=== PATIENT | female | born 1965 | race Caucasian/White ===

== ENCOUNTER 2021-08-07 08:01 | Day surgery (SDC) | payer OTHER ==
[2021-08-07] MEDS ORDERED: LACTATED RINGERS 1,000 ML IV ONE (09:22)
[2021-08-07 09:23] VITALS: RESP 16; TEMP 98.1
[2021-08-07] MEDS ORDERED: LIDOCAINE 1% (10MG/ML) FOR IV START INTRADERMA ONE (09:23)
[2021-08-07] MEDS ORDERED: LIDOCAINE 1% INJ 10MG/ML (20 ML MDV) ONE (09:29)
[2021-08-07] MEDS ORDERED: PROPOFOL 10 MG/ML 20 ML VIAL IV ONE (09:29)
--- NOTE | 2021-08-07 09:55 | P.PCN ---
Date of Procedure: 08/07/21 Procedure(s) Performed: BRIEF HISTORY: Patient is a 56-year-old pleasant white female scheduled for an elective colonoscopy as a part of screening for colorectal neoplasia. PROCEDURE PERFORMED: Colonoscopy. PREOPERATIVE DIAGNOSIS: Screening for colon cancer. IV sedation per Anesthesia. PROCEDURE: After informed consent was obtained, the patient, was brought into the endoscopy unit. IV sedation was administered by Anesthesia under continuous monitoring. Digital rectal examination was normal. Initially the Olympus CF-160 flexible video colonoscope was then inserted in the rectum, gradually advanced into the cecum without any difficulty. Careful examination was performed as the scope was gradually being withdrawn. Ileocecal valve and the appendiceal orifice were visualized and appeared normal. Prep was excellent. Mucosa of the cecum, ascending colon, transverse colon, descending colon, sigmoid colon, and rectum appeared normal. Retroflexion was performed in the rectum and no lesions were seen. The patient tolerated the procedure well. IMPRESSION: Normal-appearing colon from rectum to cecum with no evidence of colorectal neoplasia . RECOMMENDATIONS: Findings of this examination were discussed with the patient as well as her family. She was advised to have a repeat screening colonoscopy in 10 years..
[2021-08-07 10:17] VITALS: BP 120/68; PULSE 50
[2021-08-07] MEDS ORDERED: LIDOCAINE 1% (10MG/ML) FOR IV START INTRADERMA PRN (10:18)
[2021-08-07] MEDS ORDERED: LACTATED RINGERS 1,000 ML IV SCH (10:18)
== END 2021-08-07 10:33 | disposition home or self-care (01) ==
LOC: ORWHC2ENDO 08:01
PROVIDERS: ATTEND Internal Medicine Gastroenterology
DX: Z12.11 Encounter for screening for malignant neoplasm of colon (principal); E07.9 Disorder of thyroid, unspecified; K21.9 Gastro-esophageal reflux disease without esophagitis; Z79.899 Other long term (current) drug therapy; Z79.890 Hormone replacement therapy
CPT/HCPCS: J2001; J2704; G0121

== ENCOUNTER → 2022-11-19 | Outpatient (CLI) | payer OTHER ==
--- NOTE | 2022-11-19 07:35 | US ---
EXAMINATION TYPE: US thyroid st tissue head/neck DATE OF EXAM: 11/19/2022 COMPARISON: NONE CLINICAL INDICATION: Female, 57 years old with history of E03.8 OTHER SPECIFIED HYPOTHYROIDISM; Known hypothyroidism, pt on meds x many years/ incidental finding of thyroid nodule on outside CT GLAND SIZE: Right Lobe: 4.4 x 1.3 x 1.2 cm Overall Parenchyma: homogenous Left Lobe: 3.4 x 0.8 x 0.8 cm Overall Parenchyma: homogeneous Isthmus Thickness: 0.1 cm NODULES RIGHT: # of nodules measured on right: 1 1. 1.1 X 0.8 x 1.0 cm, mid, cystic or almost completely cystic, anechoic nodule, which is wider irasema n tall, with smooth margins, without echogenic foci. Prior size: No prior LEFT: # of nodules measured on left: 0 ISTHMUS: # of nodules measured in the isthmus: 0 Bilateral neck scanned, no evidence of lymphadenopathy. Cystic nodule right lobe. IMPRESSION: 1. Benign cyst right thyroid lobe 2017 ACR TI-RADS LEVEL: TR-RADS 1 - BENIGN: No FNA *Highest TI-RADS level nodule reported
== END | disposition home or self-care (01) ==
LOC: RADUSWWP 07:01
PROVIDERS: ATTEND Internal Medicine Endocrinology, Diabetes & Metabolism
DX: E04.1 Nontoxic single thyroid nodule (principal); E03.8 Other specified hypothyroidism; R22.0 Localized swelling, mass and lump, head
CPT/HCPCS: 76536

== ENCOUNTER → 2022-11-24 | Outpatient (CLI) | payer OTHER ==
[2022-11-24 20:12] LABS: HCT 39.1 % (37.2-46.3); MCH 30.3 pg (27.0-32.0); MCHC 33.2 d/dL (32.0-37.0); MCV 91.1 FL (80.0-97.0); Mean Platelet Volume 10.4 FL (9.5-12.2); NRBC Per 100 WBC 0 X 10*3/uL (0.00-0.01); Platelet Count 215 X 10*3/uL (140-440); RBC 4.29 X 10*6/uL (4.10-5.20); RDW 12.2 % (11.5-14.5); WBC 5.64 X 10*3/uL (4.50-10.00)
[2022-11-24 21:24] LABS: BUN/Creat Ratio 35.57 Ratio (12.00-20.00); Blood Urea Nitrogen 24.9 mg/dL (9.0-27.0); Glucose 103 mg/dL (70-110)
[2022-11-24 21:25] LABS: ALT 24 U/L (8-44); AST 28 U/L (13-35); Albumin 4.2 d/dL (3.8-4.9); Alkaline Phosphatase 68 U/L (41-126); Calcium 9.4 mg/dL (8.7-10.3); Carbon Dioxide 22.9 mmol/L (21.6-31.8); Chloride 107 mmol/L (96-109); Potassium 4.1 mmol/L (3.5-5.5); Sodium 140 mmol/L (135-145); T4, Free (Free Thyroxine) 0.62 ng/dL (0.80-1.80); Total Bilirubin 0.3 mg/dL (0.3-1.2); Total Protein 6.2 d/dL (6.2-8.2)
== END | disposition home or self-care (01) ==
LOC: LABWHC1 10:43
PROVIDERS: ATTEND Internal Medicine Endocrinology, Diabetes & Metabolism
DX: E04.1 Nontoxic single thyroid nodule (principal); E03.8 Other specified hypothyroidism
CPT/HCPCS: 36415; 80053; 82024; 82533; 82607; 84146; 84439; 84443; 85027

== ENCOUNTER 2022-12-03 11:58 | Emergency (ER) | payer OTHER ==
[2022-12-03] MEDS ORDERED: KETOROLAC 15 MG/ML 1 ML VIAL IVP STA (12:21)
[2022-12-03] MEDS ORDERED: HYDROmorphone 0.5 MG/0.5 ML SYRINGE IVP STA ×2 (12:22→13:49)
[2022-12-03 12:24] VITALS: TEMP 97.9
--- NOTE | 2022-12-03 12:25 | ED ---
General Adult HPI - General Chief complaint: Fall Stated complaint: fall Time Seen by Provider: 12/03/22 12:05 Source: patient, EMS, RN notes reviewed, old records reviewed Mode of arrival: EMS Limitations: no limitations - History of Present Illness Initial comments: This is a 57 old female who presents emergency Department complaining of right knee pain and left ankle pain and some lower back pain. Patient states she was in the attic and fell between 2 [place] on the floor below her. Patient states it was about 10 feet high. Patient states she landed on her buttocks. Patient denies hitting her head and neck. Patient has no neck pain patient has no numbness weakness. Patient has no headache patient has no scalp tenderness. Patient denies chest pain or upper back pain. Patient denies any abdominal pain. Patient's main pain is lower back right knee and left ankle. - Related Data Home Medications Medication Instructions Recorded Confirmed Liothyronine Sodium 25 mcg PO DAILY 08/07/21 12/03/22 FLUoxetine HCL [PROzac] 40 mg PO DAILY 12/03/22 12/03/22 Levothyroxine Sodium [Tirosint] 88 mcg PO DAILY 12/03/22 12/03/22 Multivitamins, Thera [Multivitamin 1 tab PO DAILY 12/03/22 12/03/22 (formulary)] Neuriva Plus 1 tab PO DAILY 12/03/22 12/03/22 Rizatriptan Benzoate [Rizatriptan] 5 mg PO DAILY PRN 12/03/22 12/03/22 Allergies Allergy/AdvReac Type Severity Reaction Status Date / Time latex Allergy Itching Verified 12/03/22 13:18 Review of Systems ROS Statement: Those systems with pertinent positive or pertinent negative responses have been documented in the HPI. ROS Other: All systems not noted in ROS Statement are negative. Past Medical History Past Medical History: Sleep Apnea/CPAP/BIPAP, Thyroid Disorder Additional Past Medical History / Comment(s): migraine,chronic rhinitis, History of Any Multi-Drug Resistant Organisms: None Reported Past Surgical History: Orthopedic Surgery Additional Past Surgical History / Comment(s): bilat saphenous veins removed, breast implants, left hand break repair, orthrodontic surgery Past Psychological History: Depression Smoking Status: Former smoker Past Alcohol Use History: Occasional Past Drug Use History: None Reported General Exam - General Exam Comments Initial Comments: GENERAL: Patient is well-developed and well-nourished. Patient is nontoxic and well- hydrated and is in moderate distress. ENT: Neck is soft and supple. No significant lymphadenopathy is noted. Oropharynx is clear. Moist mucous membranes. Neck has full range of motion without eliciting any pain. EYES: The sclera were anicteric and conjunctiva were pink and moist. Extraocular movements were intact and pupils were equal round and reactive to light. Eyelids were unremarkable. PULMONARY: Unlabored respirations. Good breath sounds bilaterally. No audible rales rhonchi or wheezing was noted. CARDIOVASCULAR: There is a regular rate and rhythm without any murmurs gallops or rubs. ABDOMEN: Soft and nontender with normal bowel sounds. SKIN: Skin is clear with no lesions or rashes and otherwise unremarkable. NEUROLOGIC: Patient is alert and oriented x3. Cranial nerves II through XII are grossly intact. Motor and sensory are also intact. Normal speech, volume and content. Symmetrical smile. MUSCULOSKELETAL: Patient has quite a bit of swelling to the proximal right fibula. Patient has lateral malleolus swelling and tenderness on the left. Patient has lumbosacral spine tenderness across the lower back. No lower extremity swelling or edema. No calf tenderness. LYMPHATICS: No significant lymphadenopathy is noted PSYCHIATRIC: Normal psychiatric evaluation. Limitations: no limitations Course Vital Signs 12/03/22 12/03/22 12:01 15:05 Temperature 97.9 F Pulse Rate 64 56 L Respiratory 22 16 Rate Blood Pressure 119/75 113/70 O2 Sat by Pulse 100 100 Oximetry Procedures - Orthopedic Splinting/Casting Injury #1 Side: left Lower Extremity Injury Location: long leg Lower Extremity Immobilizer: stirrup splint Medical Decision Making - Medical Decision Making Was pt. sent in by a medical professional or institution (, PA, NUCLEAR WEAPONS SPECIALIST, urgent care, hospital, or penitentiary...) When possible be specific @ -No Did you speak to anyone other than the patient for history (EMS, parent, family, police, friend...)? What history was obtained from this source @ -No Did you review nursing and triage notes (agree or disagree)? Why? @ -I reviewed and agree with nursing and triage notes Were old charts reviewed (outside hosp., previous admission, EMS record, old EKG, old radiological studies, urgent care reports/EKG's, penitentiary records)? Report findings @ -No old charts were reviewed Differential Diagnosis (chest pain, altered mental status, abdominal pain women, abdominal pain men, vaginal bleeding, weakness, fever, dyspnea, syncope, headache, dizziness, GI bleed, back pain, seizure, CVA, palpatations, mental health, musculoskeletal)? @ -Differential Musculoskeletal Muscular strain, contusion, ligament sprain, fracture, arthritis, septic arthritis, bursitis, cellulitis, muscle spasm, nerve compression, DVT, arterial occlusion, herpes zoster, electrolyte abnormality, tumor.... This is not meant to be in all inclusive list EKG interpreted by me (3pts min.). @ -As above X-rays interpreted by me (1pt min.). @ -Chest x-ray showed no acute abnormality. X-ray lumbosacral spine showed a L2 compression fracture. X-ray of the right tibia and fibula shows a comminuted tibial plateau fracture with minimal displacement. X-ray of the left ankle shows a distal comminuted intra-articular tibial fracture. C-spine x-ray shows no acute abnormality CT interpreted by me (1pt min.). @ -None done U/S interpreted by me (1pt. min.). @ -None done What testing was considered but not performed or refused? (CT, X-rays, U/S, labs)? Why? @ -None What meds were considered but not given or refused? Why? @ -None Did you discuss the management of the patient with other professionals (professionals i.e. , PA, NUCLEAR WEAPONS SPECIALIST, lab, RT, psych nurse, hospital social worker, second floor operator, teacher, communications officer, shelter case manager)? Give summary @ -I spoke with Dr. Alvarado's physician server service assistant and they recommended the patient be transferred to a trauma surgeon. I spoke with [facility] accepted the transfer of this patient. Was smoking cessation discussed for >3mins.? @ -No Was critical care preformed (if so, how long)? @ -35 minutes Were there social determinants of health that impacted care today? How? (Homelessness, low income, unemployed, alcoholism, drug addiction, transportation, low edu. Level, literacy, decrease access to med. care, [place] [facility], rehab)? @ -No Was there de-escalation of care discussed even if they declined (Discuss DNR or withdrawal of care, Hospice)? DNR status @ -No What co-morbidities impacted this encounter? (DM, HTN, Smoking, COPD, CAD, Cancer, CVA, ARF, Chemo, Hep., AIDS, mental health diagnosis, sleep apnea, morbid obesity)? @ -None Was patient admitted / discharged? Hospital course, mention meds given and route, prescriptions, significant lab abnormalities, going to OR and other pertinent info. @ -She was given appropriate pain medication and then sent over for x-rays. Patient had a proximal tibial plateau fracture on the right and a left comminuted distal tibial fracture. Patient also is an L2 fracture. Patient had a splint placed on the right ankle and a knee immobilizer on the left knee. Patient will be transferred to [facility] after I spoke with the ER there Undiagnosed new problem with uncertain prognosis? @ -No Drug Therapy requiring intensive monitoring for toxicity (Heparin, Nitro, Insulin, Cardizem)? @ -No Were any procedures done? @ -No Diagnosis/symptom? @ -Fall Acute, or Chronic, or Acute on Chronic? @ -Acute Uncomplicated (without systemic symptoms) or Complicated (systemic symptoms)? @ -Complicated Side effects of treatment? @ -No Exacerbation, Progression, or Severe Exacerbation? @ -No Poses a threat to life or bodily function? How? (Chest pain, [place], OR, pneumonia, PE, COPD, DKA, ARF, appy, cholecystitis, CVA, Diverticulitis, Homicidal, Suicidal, threat to staff... and all critical care pts) @ -No Diagnosis/symptom? @ -Right tibial plateau fracture Acute, or Chronic, or Acute on Chronic? @ -Acute Uncomplicated (without systemic symptoms) or Complicated (systemic symptoms)? @ -Complicated Side effects of treatment? @ -none Exacerbation, Progression, or Severe Exacerbation] @ -no Poses a threat to life or bodily function? @ -no Diagnosis/symptom? @ -Left distal comminuted tibia fracture Acute, or Chronic, or Acute on Chronic? @ -Acute Uncomplicated (without systemic symptoms) or Complicated (systemic symptoms)? @ -Complicated Side effects of treatment? @ -none Exacerbation, Progression, or Severe Exacerbation] @ -no Poses a threat to life or bodily function? @ -no Diagnosis/symptom? @ -L2 compression fracture Acute, or Chronic, or Acute on Chronic? @ -Acute Uncomplicated (without systemic symptoms) or Complicated (systemic symptoms)? @ -Complicated Side effects of treatment? @ -none Exacerbation, Progression, or Severe Exacerbation] @ -no Poses a threat to life or bodily function? @ -no Critical Care Time Critical Care Time: Yes Total Critical Care Time: 35 Disposition Clinical Impression: Fall, Lumbar compression fracture, Tibial plateau fracture, Fracture of distal end of tibia Disposition: OTHER INSTITUTION NOT DEFINED Referrals: [facility],Clinic [Primary Care Provider] - 1-2 days - Out of Hospital Transfer - Req. Specs Out of Hospital Transfer - Requested Specifics: Other Emergency Center ([facility])
--- NOTE | 2022-12-03 13:24 | XR ---
EXAMINATION TYPE: XR ankle complete LT DATE OF EXAM: 12/03/2022 COMPARISON: NONE HISTORY: Pain FINDINGS: Three views of the ankle demonstrate comminuted displaced fracture of the distal tibia. Large plantar calcaneal spur. Fibula grossly intact. IMPRESSION: 1. Comminuted displaced intra-articular fracture distal tibia.
--- NOTE | 2022-12-03 13:24 | XR ---
EXAMINATION TYPE: XR chest 2V DATE OF EXAM: 12/03/2022 1:19 PM COMPARISON: None TECHNIQUE: XR chest 2V Frontal and lateral views of the chest. CLINICAL INDICATION:Female, 57 years old with history of Difficulty breathing ; FINDINGS: Lungs/Pleura: There is no evidence of pleural effusion, focal consolidation, or pneumothorax. Pulmonary vascularity: Unremarkable. Heart/mediastinum: Cardiomediastinal silhouette is unremarkable. Musculoskeletal: No acute osseous pathology. Mild degenerative disc disease of the thoracic spine. IMPRESSION: No acute cardiopulmonary disease/process.
--- NOTE | 2022-12-03 13:25 | XR ---
EXAMINATION TYPE: XR tibia fibula RT DATE OF EXAM: 12/03/2022 COMPARISON: NONE HISTORY: Pain TECHNIQUE: Two views are submitted. FINDINGS: There appears to be an intra-articular tibial plateau fracture laterally with displacement. There is a fracture of the of the proximal diaphysis of the tibia with displacement with oblique orientation. Soft tissue edema noted. Lipohemarthrosis noted in the suprapatellar bursa. Plantar calcaneal spur. IMPRESSION: 1. Comminuted intra-articular tibial plateau fracture extending from lateral tibial plateau toward th e intercondylar notch. 2. Oblique proximal diaphyseal tibial mildly displaced fracture.
--- NOTE | 2022-12-03 13:25 | XR ---
EXAMINATION TYPE: XR pelvis AP view DATE OF EXAM: 12/03/2022 1:19 PM INDICATION: Patient age:Female; 57 years old; Reason for study: Trauma; [facility]. COMPARISON: None TECHNIQUE: The pelvis was examined in a single projection. FINDINGS: There is no evidence of fracture or dislocation. There is no soft tissue abnormality. Mult iple pelvic phleboliths. IMPRESSION: No acute osseous pathology.
--- NOTE | 2022-12-03 13:26 | XR ---
EXAM TYPE: LUMBAR SPINE X RAY SERIES COMPARISON: NONE HISTORY: Pain TECHNIQUE: 4 views are submitted. FINDINGS: Alignment is anatomic. The pedicles are intact. The transverse processes are intact. There is mult ilevel hypertrophic and degenerative disc disease. There is a mild superior endplate compression frac ture. Multilevel facet arthropathy. SI joints symmetric. Sacral foramina symmetric. IMPRESSION: 1. Findings are suggestive of a mildly depressed superior endplate compression fracture L2 with appro ximately 10-15% loss of vertebral body height.
--- NOTE | 2022-12-03 13:29 | XR ---
EXAMINATION TYPE: XR cervical spine comp DATE OF EXAM: 12/03/2022 COMPARISON: NONE HISTORY: Pain TECHNIQUE: Four views are submitted. FINDINGS: The odontoid is intact. There are no compression deformities. The prevertebral soft tissue structur es are within normal limits. There is severe degenerative disc disease C4-5 and C5-C6 with retrolist hesis of C4 relative to C5. IMPRESSION: 1. Multilevel severe degenerative disc disease with retrolisthesis of C4 relative to C5.
[2022-12-03 15:08] VITALS: BP 113/70; PULSE 56; RESP 16
--- NOTE | 2022-12-03 15:16 | CT ---
EXAMINATION TYPE: CT thor lumbar spine wo con CT DLP: 1006.4 mGycm, Automated exposure control for dose reduction was used. DATE OF EXAM: 12/03/2022 3:03 PM COMPARISON: Lumbar spine radiographs 12/03/2022 CLINICAL INDICATION:Female, 57 years old with history of Trauma; [facility], fall TECHNIQUE: Axial images of the thoracolumbar spine were obtained without contrast. Coronal and sagitt al reformats were performed. FINDINGS: Acute anterior wedge compression deformity with fractures involving the superior and anter ior endplate of the L2 vertebral body. There is approximately 10% height loss and no retropulsion. Ac [place] nondisplaced left L2 transverse process fracture. Mild multilevel degenerative disc disease with disc space narrowing, endplate process, Schmorl's nodes, and anterior osteophytosis. L2-L3 broad-base d disc bulge with at least mild spinal canal stenosis. L3-L4 broad-based disc bulge with a least mild spinal canal stenosis. L4-L5 broad-based disc bulge and ligamentum flavum buckling with at least mil d spinal canal stenosis. No significant neural foraminal stenosis identified. IMPRESSION: 1. Acute anterior compression fracture of the L2 vertebral body with approximately 10% height loss a nd no retropulsion. Additional acute nondisplaced fracture of the left L2 transverse process. 2. Mild multilevel degenerative disc disease of the lumbar spine.
[2022-12-03 15:19] LABS: Basophils % (A) 0 %; Eosinophils % (A) 0 %; HGB 12.5 gm/dL (11.4-16.0); Lymphocytes # (A) 0.6 k/uL (1.0-4.8); Lymphocytes % (A) 5 %; MCH 30.3 pg (25.0-35.0); MCV 91.9 fL (80.0-100.0); Mean Platelet Volume 7.5; Monocytes # (A) 0.5 k/uL (0-1.0); Monocytes % (A) 4 %; Neutrophils # (A) 12.4 k/uL (1.3-7.7); Neutrophils % (A) 91 %; Platelet Count 178 k/uL (150-450); RBC 4.14 m/uL (3.80-5.40); RDW 12.7 % (11.5-15.5); WBC 13.7 k/uL (3.8-10.6)
[2022-12-03 15:30] LABS: ALT 36 U/L (4-34); AST 49 U/L (14-36); African American GFR (CKD) >90 (>60 ml/min/1.73 sqM); Alkaline Phosphatase 72 U/L (38-126); Anion Gap 8 mmol/L; Blood Urea Nitrogen 22 mg/dL (7-17); Calcium 8.7 mg/dL (8.4-10.2); Carbon Dioxide 26 mmol/L (22-30); Chloride 104 mmol/L (98-107); Glucose 121 mg/dL (74-99); Non-African American GFR(CKD) >90 (>60 ml/min/1.73 sqM); Potassium 3.7 mmol/L (3.5-5.1); Sodium 138 mmol/L (137-145); Total Bilirubin 0.4 mg/dL (0.2-1.3); Total Protein 6.5 g/dL (6.3-8.2)
== END 2022-12-03 15:41 | disposition other institution (70) ==
LOC: EC 11:58
DX: S32.020A Wedge compression fracture of second lumbar vertebra, initial encounter for closed fracture (principal); S82.142A Displaced bicondylar fracture of left tibia, initial encounter for closed fracture; E07.9 Disorder of thyroid, unspecified; F32.A Depression, unspecified; Z87.891 Personal history of nicotine dependence; Z91.040 Latex allergy status; Z79.890 Hormone replacement therapy; Z79.899 Other long term (current) drug therapy; W17.89XA Other fall from one level to another, initial encounter
CPT/HCPCS: 36415; 80053; 85025; 72050; 72100; 72170; 73590; 73610; 71046; 72128; 72131; 99291; 96374; 96375; 96376; 29505; L1830; J1885; J1170

== ENCOUNTER → 2023-07-14 | Outpatient (CLI) | payer OTHER ==
[2023-07-14 15:11] VITALS: BP 100/73; PULSE 63; RESP 16; TEMP 97.8
--- NOTE | 2023-07-14 16:45 | P.HPOB ---
History of Present Illness H&P Date: 07/14/23 Chief Complaint: The patient is here for her routine gynecologic exam and ma mmogram. This is a 58-year-old G0 with an LMP of 2012. The patient is here to establish with this office. It has been about 5 years since her last pelvic exam. The patient states she was started on Prempro around 2012 because of irritability and hot flashes. She states she has done well with the Prempro 0.625/2.5 daily. She is without gynecologic complaints and denies any postmenopausal bleeding. Review of Systems The patient has gained about 20 pounds over the past year or 2 and attributes this to a left ankle and right knee injury which has decreased her activity. She denies respiratory, cardiac, or GI problems. Past Medical History Past Medical History: GERD/Reflux, Sleep Apnea/CPAP/BIPAP, Thyroid Disorder Additional Past Medical History / Comment(s): migraine,chronic rhinitis, overactive bladder, glaucoma, scalp folliculitis, and hypothyroidism. PAST DENTAL HYGIENE ADMINISTRATIVE ASSISTANT HISTORY: She has no history of STDs. History of Any Multi-Drug Resistant Organisms: None Reported Past Surgical History: Orthopedic Surgery Additional Past Surgical History / Comment(s): bilat saphenous veins removed, bilateral silicone breast implants, left hand break repair, orthrodontic surgery, left ankle and right knee surgeries. Colonoscopy 2020(next after 10yr). Past Psychological History: Depression Smoking Status: Never smoker Past Alcohol Use History: None Reported Past Drug Use History: None Reported Additional History: She is single and is not currently seeing anybody at this time. 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 - Past Family History Mother Family Medical History: Pulmonary Embolus Additional Family Medical History / Comment(s): from pulmonary embolus at age 92. Maternal grandmother had ovarian cancer and maternal aunt had breast cancer. Sister(s) Family Medical History: Cancer Additional Family Medical History / Comment(s): Uterine cancer. Medications and Allergies Home Medications Medication Instructions Recorded Confirmed Type Liothyronine Sodium 25 mcg PO DAILY 08/07/21 07/14/23 History FLUoxetine HCL [PROzac] 40 mg PO DAILY 12/03/22 07/14/23 History Levothyroxine Sodium [Tirosint] 88 mcg PO DAILY 12/03/22 07/14/23 History Multivitamins, Thera [Multivitamin 1 tab PO DAILY 12/03/22 07/14/23 History (formulary)] Rizatriptan Benzoate [Rizatriptan] 5 mg PO DAILY PRN 12/03/22 07/14/23 History Amitriptyline HCl 50 mg PO DAILY 07/14/23 07/14/23 History Benzoyl Peroxide [Benzoyl Peroxide 1 applic TOPICAL DIRECTED 07/14/23 07/14/23 History 5%] Clindamycin Phosphate [Clindagel 1 applic TOPICAL DIRECTED 07/14/23 07/14/23 History 1%] Clobetasol Propionate [Temovate 1 applic VAGINAL DIRECTED 07/14/23 07/14/23 History 0.05% Cream] Ferrous Sulfate [Iron (65 MG 1 tab PO DAILY 07/14/23 07/14/23 History Elemental)] Latanoprost [Latanoprost 0.005%] 0.005 % PO DAILY 07/14/23 07/14/23 History Mirabegron [Myrbetriq] 50 mg PO DAILY 07/14/23 07/14/23 History Omeprazole 20 mg PO DAILY 07/14/23 07/14/23 History Allergies Allergy/AdvReac Type Severity Reaction Status Date / Time latex Allergy Itching Verified 07/14/23 14:57 Exam Vital Signs Temp Pulse Resp BP Pulse Ox 07/14/23 15:04 97.8 F 63 16 100/73 98 Intake and Output 07/14/23 07/14/23 07/14/23 06:59 14:59 22:59 Other: Weight 76.204 kg Height 5 feet 8 inches, weight 168 pounds, BMI 25.5. This is a well-developed well-nourished white female who is alert and oriented times 3 in no acute distress. HEENT: Within normal limits. NECK: Supple without mass or thyromegaly. CHEST AND LUNGS: Clear to auscultation. HEART: Regular rate and rhythm. BREASTS: Are without mass or discharge. AXILLARY EXAM: Negative for adenopathy. BACK: Negative for CVA tenderness. ABDOMEN: Soft, nontender, without palpable masses. PELVIC EXAM: Normal external genitalia with mild atrophy. Cervix and vagina appear normal with mild to moderate atrophy. The cervix appears nulliparous with stenosis secondary to atrophy. There is no unusual discharge. There is no evidence of prolapse. The uterus is midposition, nongravid size and nontender. There are no palpable adnexal masses or tenderness. RECTAL EXAM: Rectovaginal exam is negative for mass or tenderness and is negative for occult blood. EXTREMITIES: Nontender. IMPRESSION: 1. 58-year-old menopausal female with normal gynecologic exam. 2. Doing well on Prempro 0.625/2.5 which she has been on for 10 years. PLAN: 1. Pap smear cotest was performed. 2. Self breast awareness was discussed with the patient. We have also discussed symptoms associated with inflammatory breast cancer. 3. Screening mammogram will be done today. 4. Osteoporosis prevention was discussed. I have stressed the importance of adequate calcium, vitamin D and regular exercise. Recommended amounts of calcium and vitamin D were also discussed. 5. We have had a long discussion regarding HRT. We have discussed pros and cons. We have discussed possible risks including slight increased risk for breast cancer, heart attack, stroke, and blood clots. We will try to find the lowest effective dose by weaning down, and gradually off of HRT. We will have a trial of Prempro 0.45/1.5. We have discussed the option of changing to estradiol with micronized progesterone. We have decided to continue with Prempro since she has done well with this. She was instructed to call if she is having any significant symptoms or problems with this dose. She is anxious about making changes with the HRT since she has done well for many years on HRT. We will try to make the wean gradual, but I would like to have her off of HRT but age 61. A prescription will be sent electronically to [facility] pharmacy. 6. STD prevention was discussed. I have stressed the importance of limiting sexual partners and if she is sexually active I recommended that she use condoms. She is currently not seen anybody and is not sexually active. 7. She was advised to return in one year for her annual well woman exam.
--- NOTE | 2023-07-15 21:52 | MM ---
Reason for Exam: Screening (asymptomatic). Last screening mammogram was performed 12 month(s) ago. Patient History: Menarche at age 13. Patient has no children. Postmenopausal. Patient used Hormonal Contraceptives for 10 years. 2013, Bilateral Implants. Maternal aunt had breast cancer at or over age 50. Risk Values: Aspen 5 year model risk: 1.4%. NCI Lifetime model risk: 8.7%. Prior Study Comparison: 03/05/2021 Bilateral Screening Mammogram, [facility]. 07/17/2022 Bilateral Screening Mammogram, [facility]. Tissue Density: The breast tissue is heterogeneously dense. This may lower the sensitivity of mammography. Findings: Analyzed By CAD. Retropectoral silicone implants are demonstrated. On the right, subareolar asymmetric density on the MLO view is more defined and further evaluation is recommended. On the left, posterior upper outer quadrant focal asymmetry is also more defined. This may represent superimposition shadow but further evaluation is recommended. No other significant change. Overall Assessment: Incomplete: need additional imaging evaluation, BI-RAD 0 Management: Special View Mammogram of both breasts. Diagnostic Breast Ultrasound of both breasts. . [facility] will attempt to contact patient to return for supplemental views and ultrasound if indicated. Electronically signed and approved by: Suzanna Silver M.D. Radiologist
== END ==
LOC: WWCWWP 14:45
PROVIDERS: ATTEND Obstetrics & Gynecology
DX: E03.9 Hypothyroidism, unspecified (principal); F32.A Depression, unspecified; G47.30 Sleep apnea, unspecified; K21.9 Gastro-esophageal reflux disease without esophagitis; G43.909 Migraine, unspecified, not intractable, without status migrainosus; J31.0 Chronic rhinitis; H40.9 Unspecified glaucoma; Z78.0 Asymptomatic menopausal state; Z87.448 Personal history of other diseases of urinary system; Z87.2 Personal history of diseases of the skin and subcutaneous tissue; Z79.890 Hormone replacement therapy; Z91.040 Latex allergy status; Z79.899 Other long term (current) drug therapy; Z80.3 Family history of malignant neoplasm of breast
CPT/HCPCS: 77063; 77067

== ENCOUNTER → 2023-07-20 | Outpatient (CLI) | payer OTHER ==
--- NOTE | 2023-07-20 14:30 | MM ---
Reason for Exam: Additional evaluation requested from abnormal screening. Last screening mammogram was performed less than 1 month ago. Patient History: Menarche at age 13. Patient has no children. Postmenopausal. Patient used Hormonal Contraceptives for 10 years. 2013, Bilateral Implants. Maternal aunt had breast cancer at or over age 50. Risk Values: Aspen 5 year model risk: 1.4%. NCI Lifetime model risk: 8.7%. Prior Study Comparison: 03/05/2021 Bilateral Screening Mammogram, [facility]. 07/17/2022 Bilateral Screening Mammogram, [facility]. 07/14/2023 Bilateral MG 3D screen mammo imp/cad., [facility]. Tissue Density: There are scattered fibroglandular densities. Findings: Analyzed By CAD. Bilateral retropectoral silicone implants. Persisting 1.2 cm nodular focal asymmetry upper outer quadrant left breast for which further ultrasound evaluation is recommended. The questioned subareolar asymmetric density right breast does not persist on the spot 3-D lateral view. Findings compatible with superimposition shadow. Overall Assessment: Incomplete: need additional imaging evaluation, BI-RAD 0 Management: Diagnostic Breast Ultrasound of the left breast. Electronically signed and approved by: Suzanna Silver M.D. Radiologist
--- NOTE | 2023-07-20 14:49 | USB ---
Reason for Exam: Additional evaluation requested from abnormal screening. Patient History: Menarche at age 13. Patient has no children. Postmenopausal. Patient used Hormonal Contraceptives for 10 years. 2013, Bilateral Implants. Maternal aunt had breast cancer at or over age 50. Risk Values: Aspen 5 year model risk: 1.4%. NCI Lifetime model risk: 8.7%. Prior Study Comparison: 03/05/2021 Bilateral Screening Mammogram, [facility]. 07/17/2022 Bilateral Screening Mammogram, [facility]. 07/14/2023 Bilateral MG 3D screen mammo imp/cad., [facility]. Findings: The upper outer quadrant of the left breast, the axilla of the left breast and the retroareolar of the left breast were scanned. Targeted ultrasound upper outer quadrant left breast 12:00 to 3:00 including scanning of the subareolar region and axilla. Underlying breast implant is demonstrated. No solid or cystic lesion. There appears to be a dense island of fibroglandular tissue measuring 1.1 cm at 1:00, possible mammographic correlate. Six-month follow-up diagnostic left breast mammogram recommended to ensure stability of the nodular focal asymmetry. No solid or cystic lesion or axillary adenopathy.. Overall Assessment: Probably benign, BI-RAD 3 Management: Diagnostic Mammogram of the left breast in 6 months. A clinical breast exam by your physician is recommended on an annual basis and results should be correlated with mammographic findings. This exam should not preclude additional follow-up of suspicious palpable abnormalities. Results were given to the patient verbally at the time of exam. Electronically signed and approved by: Suzanna Silver M.D. Radiologist
== END | disposition home or self-care (01) ==
LOC: RADMAMWWP 14:01
PROVIDERS: ATTEND Obstetrics & Gynecology
DX: R92.323 Mammographic fibroglandular density, bilateral breasts (principal); Z80.3 Family history of malignant neoplasm of breast; Z78.0 Asymptomatic menopausal state; Z98.82 Breast implant status
CPT/HCPCS: 77062; 77066

== ENCOUNTER → 2024-02-05 | Outpatient (CLI) | payer OTHER ==
--- NOTE | 2024-02-05 13:54 | MM ---
Reason for Exam: Follow-up at short interval from prior study. Last screening mammogram was performed 7 month(s) ago. Patient History: Menarche at age 13. Patient has no children. Postmenopausal. Patient used Hormonal Contraceptives for 10 years. 2013, Bilateral Implants. Maternal aunt had breast cancer at or over age 50. Risk Values: Aspen 5 year model risk: 1.4%. NCI Lifetime model risk: 8.7%. Prior Study Comparison: 07/17/2022 Bilateral Screening Mammogram, [facility]. 07/14/2023 Bilateral MG 3D screen mammo imp/cad., [facility]. 07/20/2023 Bilateral MG 3D work up w/cad w/imp MAXINE, [facility]. Tissue Density: Left: The breasts are heterogeneously dense, which may obscure small masses. Findings: Analyzed By CAD. Bilateral retropectoral silicone implants. Nodularity in the upper outer quadrant remains unchanged. Additional antral nodularity on the CC view is also unchanged. Additional follow-up at the time of the patient's annual exam can be performed. Overall Assessment: Probably benign, BI-RAD 3 Management: Diagnostic Mammogram of both breasts in 6 months. No ultrasound needed at this time. Total one-year follow-up left breast and annual exam of the right breast. Results were given to the patient verbally at the time of exam. Patient should continue monthly self-breast exams. A clinical breast exam by your physician is recommended on an annual basis. This exam should not preclude additional follow-up of suspicious palpable abnormalities. Note on Aspen scores and lifetime risk: 1. A Aspen score greater than 3% is considered moderate risk. If this is the case, consider specialist referral to assess eligibility for a risk reducing agent. 2. If overall lifetime risk for the development of breast cancer is 20% or higher, the patient may qualify for future screening with alternating mammogram and breast MRI. Electronically signed and approved by: Suzanna Silver M.D. Radiologist
== END | disposition home or self-care (01) ==
LOC: RADMAMWWP 13:17
PROVIDERS: ATTEND Family Medicine
DX: R92.8 Other abnormal and inconclusive findings on diagnostic imaging of breast
CPT/HCPCS: 77061; 77065

== ENCOUNTER → 2024-02-19 | Outpatient (CLI) | payer OTHER ==
--- NOTE | 2024-02-29 21:41 | BD ---
EXAMINATION TYPE: Axial Bone Density DATE OF EXAM: 02/19/2024 CLINICAL HISTORY: 58 years old Female. ICD-10 CODE: [id number] OSTEO Height: 66in Weight: 137lb FRAX RISK QUESTIONS: History of Fracture in Adulthood: yes Secondary Osteoporosis: 3. Menopause before 45: yes RISK FACTORS HISTORY OF: Kyphoplasty in Apr 2023 MEDICATIONS: Thyroid Medications: Which medication: Synthroid [place] How Long: about 12 years EXAM MEASUREMENTS: Bone mineral densitometry was performed using the [employer] System. Bone mineral density as measured about the Lumbar spine is: ----- L1-L4(G/cm2): 1.590 T Score Values are as follows: ----- L1: 1.3 ----- L2: 7.0 ----- L3: 2.0 ----- L4: 3.0 ----- L1-L4: 3.4 Z Score Values are as follows: ----- L1: 2.4 ----- L2: 8.1 ----- L3: 3.1 ----- L4: 4.1 ----- L1-L4: 4.5 First dexa at [facility] Pt [employer] tech after scanning lumbar spine of a previous kyphoplasty Bone mineral density about the R hip (g/cm2): 0.849 Bone mineral density about the L hip (g/cm2): 0.869 T Score values are as follows: -----R Neck: -0.7 -----L Neck: -0.3 -----R Total: -1.3 -----L Total: -1.1 Z Score values are as follows: -----R Neck: 0.5 -----L Neck: 0.9 -----R Total: -0.4 -----L Total: -0.2 First dexa at [facility] FRAX%s: The graph provided illustrates a 10.1% chance for a major osteoporotic fx and a 0.4% chance f or the hips probability for fx in 10 years time. IMPRESSION: Normal (Values between +1 and -1 indicate normal bone mass). Consider repeating this study in 5 year s or sooner if there is some new clinical indication. NOTE: T-SCORE=SD OF THE YOUNG ADULT MEAN. [facility], , 02/29/2024 9:39 PM
== END | disposition home or self-care (01) ==
LOC: RADBDWWP 13:08
PROVIDERS: ATTEND Family Medicine
CPT/HCPCS: 77080

== ENCOUNTER → 2024-05-27 | Outpatient (CLI) | payer OTHER ==
--- NOTE | 2024-05-27 15:47 | US ---
EXAMINATION TYPE: US thyroid st tissue head/neck DATE OF EXAM: 05/27/2024 COMPARISON: NONE CLINICAL INDICATION: Female, 58 years old with history of E04.1 THYROID NODULE; f/u exam, on thyroid meds, no issues TECHNIQUE: Grayscale and color Doppler imaging of the thyroid gland. FINDINGS: GLAND SIZE: Right Lobe: 3.2 x 0.9 x 1.0 cm Overall Parenchyma: homogeneous Left Lobe: 2.9 x 0.6 x 0.9 cm Overall Parenchyma: homogeneous Isthmus Thickness: 0.1 cm NODULES RIGHT: # of nodules measured on right: 0 - previous cyst is not seen today LEFT: # of nodules measured on left: 0 ISTHMUS: # of nodules measured in the isthmus: 0 Bilateral neck scanned, no evidence of lymphadenopathy. IMPRESSION: No thyroid nodules visualized. [facility], , 05/27/2024 3:45 PM
== END | disposition home or self-care (01) ==
LOC: RADUSWWP 13:11
PROVIDERS: ATTEND Internal Medicine Endocrinology, Diabetes & Metabolism
DX: E04.1 Nontoxic single thyroid nodule (principal)
CPT/HCPCS: 76536

== ENCOUNTER → 2024-08-16 | Outpatient (CLI) | payer OTHER ==
[2024-08-16 08:20] VITALS: BP 116/71; PULSE 66; RESP 16; TEMP 97.9
--- NOTE | 2024-08-16 09:07 | P.HPOB ---
History of Present Illness H&P Date: 08/16/24 Chief Complaint: The patient is here for her routine gynecologic exam and ma mmogram. This is a 59-year-old G0 with an LMP of 2013. The patient is still on HRT in the form of Prempro 0.45/1.5 daily. She states she is doing okay on this dose but not as well as she did with higher dose of HRT. She uses the HRT because of irritability and feels more levelheaded with HRT. She has noticed a small fluid-filled lump at the rectal opening. She is otherwise without complaints. Her last bilateral mammogram about 1 year ago did require a left breast workup and a 6-month follow-up. The left diagnostic mammogram in January 2024 was probably benign. A bilateral 6-month diagnostic mammogram was recommended which will be done today. Review of Systems She has lost about 26 pounds over the past year. She denies respiratory, cardiac, or G.I. problems. Past Medical History Past Medical History: GERD/Reflux, Sleep Apnea/CPAP/BIPAP, Thyroid Disorder Additional Past Medical History / Comment(s): migraine,chronic rhinitis, overactive bladder, glaucoma, scalp folliculitis, and hypothyroidism. PAST [employer]PER[employer]OR [employer]ING HISTORY: She has no history of STDs. History of Any Multi-Drug Resistant Organisms: None Reported Past Surgical History: Orthopedic Surgery Additional Past Surgical History / Comment(s): bilat saphenous veins removed, bilateral silicone breast implants, left hand break repair, orthrodontic surgery, left ankle and right knee surgeries. Colonoscopy 2020(next after 10yr). Past Psychological History: Depression Smoking Status: Never smoker Past Alcohol Use History: None Reported Past Drug Use History: None Reported Additional History: She is single and is not seen by me at this time. She denies any sexual activity over the past year. 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 - Past Family History Mother Family Medical History: Pulmonary Embolus Additional Family Medical History / Comment(s): from pulmonary embolus at age 92. Maternal grandmother had ovarian cancer and maternal aunt had breast cancer. Sister(s) Family Medical History: Cancer Additional Family Medical History / Comment(s): Uterine cancer. Medications and Allergies Home Medications Medication Instructions Recorded Confirmed Type Liothyronine Sodium 25 mcg PO DAILY 08/07/21 08/16/24 History FLUoxetine HCL [PROzac] 40 mg PO DAILY 12/03/22 08/16/24 History Levothyroxine Sodium [Tirosint] 88 mcg PO DAILY 12/03/22 08/16/24 History Multivitamins, Thera [Multivitamin 1 tab PO DAILY 12/03/22 08/16/24 History (formulary)] Rizatriptan Benzoate [Rizatriptan] 5 mg PO DAILY PRN 12/03/22 08/16/24 History Amitriptyline HCl 50 mg PO DAILY 07/14/23 08/16/24 History Benzoyl Peroxide [Benzoyl Peroxide 1 applic TOPICAL DIRECTED 07/14/23 08/16/24 History 5%] Clindamycin Phosphate [Clindagel 1 applic TOPICAL DIRECTED 07/14/23 08/16/24 History 1%] Clobetasol Propionate [Temovate 1 applic VAGINAL DIRECTED 07/14/23 08/16/24 History 0.05% Cream] Estrogen,Con/M-Progest Acet 1 each PO DAILY #90 tablet 07/14/23 08/16/24 Rx [Prempro 0.45-1.5 mg Tablet] Ferrous Sulfate [Iron (65 MG 1 tab PO DAILY 07/14/23 08/16/24 History Elemental)] Mirabegron [Myrbetriq] 50 mg PO DAILY 07/14/23 08/16/24 History Omeprazole 20 mg PO DAILY 07/14/23 08/16/24 History Carboxymethylcellulose Sodium 1 drop BOTH EYES DAILY 08/16/24 08/16/24 History [Refresh Tears] Allergies Allergy/AdvReac Type Severity Reaction Status Date / Time latex Allergy Itching Verified 08/16/24 08:15 Exam Vital Signs Temp Pulse Resp BP Pulse Ox 08/16/24 08:17 97.9 F 66 16 116/71 98 Intake and Output 08/15/24 08/16/24 08/16/24 22:59 06:59 14:59 Other: Weight 64.41 kg Height 5 feet 8 inches, weight 142 pounds, BMI 21.6. This is a well-developed well-nourished white female who is alert and oriented times 3 in no acute distress. HEENT: There is bilateral redness of the sclera. The patient states she is being treated for this. HEENT is otherwise within normal limits. NECK: Supple. The thyroid is about 1.5 times normal size without focal palpable nodules. Thyroid is nontender. The patient sees her lead pharmacy technician regularly for thyroid checks. CHEST AND LUNGS: Clear to auscultation. HEART: Regular rate and rhythm. BREASTS: Are without mass or discharge. AXILLARY EXAM: Negative for adenopathy. BACK: Negative for CVA tenderness. ABDOMEN: Soft, nontender, without palpable masses. PELVIC EXAM: Normal external genitalia mild atrophy. Cervix and vagina appear normal with mild atrophy. There is no unusual discharge. There is no evidence of prolapse. The uterus is midposition, nongravid size and nontender. There are no palpable adnexal masses or tenderness. RECTAL EXAM: There is a soft external hemorrhoid measuring approximately 1.5 cm on the right side of the anus. This is what the patient has been feeling. This is not inflamed and nontender. Rectovaginal exam is negative for mass or tenderness and is negative for occult blood. EXTREMITIES: Nontender. IMPRESSION: 1. 59-year-old menopausal female doing well on Prempro 0.45/1.5 daily. Normal gynecologic exam. 2. Benign-appearing external hemorrhoid. PLAN: 1. Pap smear was deferred since she had a negative Pap smear cotest on 07/14/2023. 2. Self breast awareness was discussed with the patient. We have also discussed symptoms associated with inflammatory breast cancer. 3. Bilateral diagnostic mammogram will be done today. 4. Osteoporosis prevention was discussed. She had a bone density test on 02/19/2024 which was normal. We will plan on repeating this in about 5 years. 5. We have had a long discussion regarding HRT. I recommended that she con tinue weaning from the HRT. I have recommended changing her dose to Prempro 0.3/1.5 daily. She is declining this and feels strongly that she would like to continue her current dose at this time. We have discussed possible risks including an increased risk for heart attack, stroke, breast cancer, and blood clots. She understands that the risks or these do increase as she gets older. I have recommended that she try to get off of HRT by the age of 61. She will consider this and call if she would like to go to the lower dose. Patient requested a prescription be sent to the [facility]. A paper prescription was given to the patient for this. 6. We have discussed her hemorrhoid. We have discussed ways to avoid irritation and bleeding problems. She is wondering if there are treatments to g et rid of the hemorrhoid. We have discussed possible surgical approaches. She will discuss this further with her PCP and get a referral to a surgeon, if necessary. 7. She was advised to return in one year for her annual well woman exam.
== END ==
LOC: WWCWWP 08:01
PROVIDERS: ATTEND Obstetrics & Gynecology
DX: Z01.419 Encounter for gynecological examination (general) (routine) without abnormal findings (principal); Z78.0 Asymptomatic menopausal state; Z91.040 Latex allergy status

== ENCOUNTER → 2024-08-16 | Outpatient (CLI) | payer OTHER ==
--- NOTE | 2024-08-16 09:19 | MM ---
Reason for Exam: Additional evaluation requested from prior study. Last mammogram was performed 1 year(s) and 1 month(s) ago. Patient History: Menarche at age 13. Patient has no children. Postmenopausal. Patient used Hormonal Contraceptives for 10 years. 2013, Bilateral Implants. Maternal aunt had breast cancer, age 75. Risk Values: Aspen 5 year model risk: 1.5%. NCI Lifetime model risk: 8.5%. Prior Study Comparison: 03/05/2021 Bilateral Screening Mammogram, [place] [facility]. 07/17/2022 Bilateral Screening Mammogram, [facility]. 07/14/2023 Bilateral MG 3D screen mammo imp/cad., [facility]. 07/20/2023 Bilateral MG 3D work up w/cad w/imp MAXINE, [facility]. 07/20/2023 Bilateral US breast limited LT, [facility]. 02/05/2024 Left MG 3D diag mammo imp w/cad LT, [facility]. Tissue Density: There are scattered areas of fibroglandular density. Findings: Chronic nodularity in the left breast is stable. Bilateral breast implants are redemonstrated. No suspicious new mass or distortion in either breast. Overall Assessment: Benign, BI-RAD 2 Management: Screening Mammogram of both breasts in 1 year. . Results were given to the patient verbally at the time of exam. Patient should continue monthly self-breast exams. A clinical breast exam by your physician is recommended on an annual basis. This exam should not preclude additional follow-up of suspicious palpable abnormalities. Note on Aspen scores and lifetime risk: 1. A Aspen score greater than 3% is considered moderate risk. If this is the case, consider specialist referral to assess eligibility for a risk reducing agent. 2. If overall lifetime risk for the development of breast cancer is 20% or higher, the patient may qualify for future screening with alternating mammogram and breast MRI. [facility], , 08/16/2024 9:15 AM. Electronically signed and approved by: Rashard Mae M.D.
== END | disposition home or self-care (01) ==
LOC: RADMAMWWP 08:03
PROVIDERS: ATTEND Family Medicine
DX: R92.8 Other abnormal and inconclusive findings on diagnostic imaging of breast (principal); R92.323 Mammographic fibroglandular density, bilateral breasts; Z78.0 Asymptomatic menopausal state; Z92.0 Personal history of contraception; Z80.3 Family history of malignant neoplasm of breast
CPT/HCPCS: 77062; 77066